=== PATIENT | male | born 1945 | race Caucasian/White ===

== ENCOUNTER → 2017-06-26 | Outpatient (CLI) | payer MEDICARE ==
[2017-06-26 11:46] LABS: PROTHROMBIN TIME - PATIENT 10.5 SEC (9.8-11.6)
[2017-06-26 11:52] LABS: BICARBONATE 28.9 MEQ/L (21.0-32.0); POTASSIUM 4.1 MEQ/L (3.5-5.1)
--- NOTE | 2017-06-26 11:52 | RADRPT ---
EXAM DATE/TIME: 06/26/2017 10:47 [facility] COMPARISON: No previous studies available for comparison. INDICATIONS : Evaluate for pneumothorax, pneumonia, or communicable disease.Preop chest for shoulder surgery on , no chest complaints at this time MEDICAL HISTORY : None. SURGICAL HISTORY : None. ENCOUNTER: Initial ACUITY: 1 day PAIN SCORE: 0/10 LOCATION: Bilateral chest FINDINGS: Moderate hyperinflation without infiltrate or failure.. The cardiomediastinal contours are unremarka ble. Again changes thoracic spine. CONCLUSION: No acute disease. Eric Khan MD FACR on June 26, 2017 at 11:49 Board Certified Radiologist. This report was verified electronically.
[2017-06-26 12:05] LABS: BLOOD, URINE NEG (NEG); COMMENT (UR) CULT NOT INDICATED; CULTURE IF INDICATED CULT NOT INDICATED; GLUCOSE,URINE NEG (NEG); KETONE, URINE NEG (NEG); MUCUS URINE FEW /lpf (OCC); NITRITE,URINE NEG (NEG); SQUAMOUS EPITHELIAL CELL URINE <1 /hpf (0-5); URINE COLOR YELLOW (YELLW/STRAW)
== END ==
LOC: CPRE 09:49
PROVIDERS: ATTEND Orthopaedic Surgery
DX: Z01.812 Encounter for preprocedural laboratory examination (principal); Z01.811 Encounter for preprocedural respiratory examination; M75.111 Incomplete rotator cuff tear or rupture of right shoulder, not specified as traumatic
CPT/HCPCS: 36415; 71020; 80048; 81001; 85610

== ENCOUNTER → 2017-07-06 | Day surgery (SDC) | payer MEDICARE ==
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
[~2017-07-06] VITALS: Ht 188 cm; Wt 83.4 kg
[~2017-07-06] MED LIST: ACETAMINOPHEN/HYDROcodone 325 MG/5 MG TAB PO PRN; CHLORHEXIDINE GLUCONATE 2 % 1 PACK (2 CLOTHS) TOPICAL PRN; DEXAMETHASONE SOD PHOS 4 MG/ML VIAL IV ONE; DO NOT ADM ANY ANTICOAGULANT DRUGS PRN; GENTAMICIN SULFATE 80 MG/2 ML VIAL ONE; GLYCOPYRROLATE 1 MG/5 ML SYRINGE IV PUSH ONE; LACTATED RINGER'S 1000 ML INJ 2,000 ML IV ONE; LACTATED RINGER'S 1000 ML IV PRN; LIDOCAINE HCL 1% PF 5 ML SYRINGE OTHER ONE; METOPROLOL TARTRATE 25 MG TAB PO PRN; NEOSTIGMINE 5 MG/5 ML SYRINGE IV PUSH ONE; ONDANSETRON HCL 4 MG/2 ML VIAL IV ONE; POVIDONE IODINE 5% (ANTISEPSIS KIT) 4 APPLICATIONS EACH NARE PRN; POVIDONE IODINE 7.5% SCRUB 118 ML BOTTLE TOPICAL SCH; PROMETHAZINE INJ 25 MG/ML VIAL IM PRN; PROPOFOL 200 MG/20 ML AMP IV ONE; ROCURONIUM INJ 50 MG/5 ML SYRINGE IV PUSH ONE; SODIUM CHLORID 0.9% 500 ML IV PRN; SODIUM CHLORIDE 0.9% 20 ML VIAL ONE; SUGAMMADEX SODIUM 200 MG/2 ML VIAL IV PUSH ONE; ceFAZolin 2 GM PREMIX 50 ML IV SCH; ceFAZolin INJ 1,000 MG VIAL ONE; ePHEDrine/NS 25 MG/5 ML SYRINGE IV ONE
[2017-07-06 10:20] VITALS: BP 122/64; PULSE 66; RESP 18; TEMP 97.4; O2SAT 97
--- NOTE | 2017-07-06 16:38 | MP ---
cc: GARRICK WOMACK DATE OF SURGERY: 07/06/2017 PREOPERATIVE DIAGNOSIS Incomplete rotator cuff tear of the right shoulder with possible full-thickness tear, acromioclavicular arthrosis right shoulder, pain of the right shoulder. POSTOPERATIVE DIAGNOSIS Complete rotator cuff tear right shoulder with impingement syndrome, acromioclavicular arthrosis and pain of the right shoulder. PROCEDURE Acromioplasty of the right shoulder with mini open rotator cuff repair. SURGEON Shanta. ANESTHESIA General endotracheal. FORMAT Following the induction of satisfactory general anesthesia by endotracheal intubation as completed per the Department of Anesthesia, the patient was positioned upon the operating table in a modified beach-chair configuration. A sheet roll was established along the vertebral border of the right scapula. The right shoulder and upper extremity proper were isolated with a U-drape thereafter being prepped with Betadine solution and draped into a sterile field in the routine manner. Prior to initiation of the actual procedure the standard timeout protocol was completed. All parameters were appropriately addressed and confirmed by operating room personnel. A sharp skin incision was initiated superiorly over the shoulder along the palpable margin of the acromion, developed through underlying subcutaneous tissue with hemostasis maintained by electrocautery. By deepening dissection the underlying deltoid musculature was exposed along its anterior raphe. The deltoid was divided in a medial to lateral orientation facilitating entry into the subacromial space. Examination at that time revealed significant hypertrophy of the anterior inferior margin of the acromion consistent with an impingement phenomenon. There was reactive bursal tissue throughout the area and a linear tear involving the supraspinatus tendon was noted. A limited debridement of the bursal tissue was accomplished and thereafter an oblique osteotomy of the anterior inferior margin of the acromion was accomplished, the undersurface of which was contoured with bone rasp. Visual and digital inspection confirmed an adequate decompression within the confines of the subacromial space. The margins of the underlying full-thickness tear were thereafter fully visualized and sharply debrided along its anterior surface and thereafter utilizing 0 Polydek suture in an interrupted fashion a primary repair was accomplished. Thereafter the shoulder was carried through a passive range of motion. Stability of the rotator cuff was noted with no evidence of residual impingement. The wound was copiously irrigated with antibiotic saline solution. The deltoid was thus repaired with interrupted 0 Polydek suture. The remaining portion of the wound was closed in layers in the routine manner, skin margins being re-approximated with a running subcuticular 3-0 Vicryl suture over which Steri-Strips were applied. Xeroform gauze and a bulky dry sterile dressing were placed. The extremity being supported in an arm sling anesthesia was discontinued. He was thereafter transferred to a hospital stretcher and returned to the recovery room in satisfactory condition having tolerated his operative procedure well. Estimated blood loss was less than 10 cc. Garrick Womack MD NBS/BT /8:48 AM /4:23 PM
== END | disposition home or self-care (01) ==
LOC: HSDC 05:23 → EDUNIT# 07:00 → EDSTATUS 07:00
PROVIDERS: ATTEND Orthopaedic Surgery
DX: M75.111 Incomplete rotator cuff tear or rupture of right shoulder, not specified as traumatic (principal); M19.011 Primary osteoarthritis, right shoulder
CPT/HCPCS: 01630; 23420; J0690; J1100; J2405; J2710; J3010; J7120; J1580